=== PATIENT | female | born 1990 | race American Indian/Alaskan Native ===

== ENCOUNTER 2021-06-05 12:50 | Outpatient (CLI) | payer MEDICAID ==
[2021-06-05 13:41] VITALS: BP 128/69
--- NOTE | 2021-06-05 18:48 | Ultrasound Report ---
ULTRASOUND OBSTETRIC LIMITED ULTRASOUND BIOPHYSICAL PROFILE INDICATION / CLINICAL INFORMATION: DECREASED MOVEMENT. TECHNIQUE: Transabdominal. COMPARISON: None available. FINDINGS: BREATHING MOVEMENT = 2 GROSS BODY MOVEMENT = 2 TONE = 2 QUALITATIVE AMNIOTIC FLUID VOLUME = 2 TOTAL BIOPHYSICAL SCORE = 8/8 HEART RATE (beats per minute): 147 AMNIOTIC FLUID INDEX (cm) = 19.2 (normal = 7-24 cm) PRESENTATION: Cephalic. ADDITIONAL FINDINGS: None. IMPRESSION: 1. Biophysical Score = 8/8 Signer Name: Bacilio Granados MD Signed: 06/05/2021 6:44 PM Workstation Name: [id number]
== END 2021-06-05 17:45 | disposition home or self-care (01) ==
LOC: TRG 12:50 → APU 12:51 → TRG 17:45
PROVIDERS: ATTEND Obstetrics & Gynecology
DX: O36.8131 Decreased fetal movements, third trimester, fetus 1 (principal); Z3A.38 38 weeks gestation of pregnancy
CPT/HCPCS: 76815; 76819